=== PATIENT | female | born 1960 | race Caucasian/White ===

== ENCOUNTER → 2016-08-27 | Outpatient (CLI) | payer MEDICARE ==
[~2016-08-27] MED LIST: ASPI81TA82 PO; CARB25TA PO; CYMB30CA PO; DIAZ5TAB PO; MEDR4PAK3 PO; PRAV40TA PO
[2016-08-27 12:00] LABS: AUTOMATED NEUTROPHIL # 3.4 TH/MM3 (1.8-7.7); BASOPHIL # 0.1 TH/MM3 (0-0.2); EOSINOPHIL # 0.2 TH/MM3 (0-0.4); EOSINOPHIL % 4.2 % (0.0-4.0); HEMATOCRIT 36.9 % (35.0-46.0); HEMO FLAGS DIFF FINAL; LYMPHOCYTE # 1.5 TH/MM3 (1.0-4.8); MEAN CELL VOLUME 86.2 FL (80.0-100.0); MEAN CORPUSCULAR HEMOGLOBIN 28.5 PG (27.0-34.0); MEAN CORPUSCULAR HGB CONC 33.1 % (32.0-36.0); MONO % 8.9 % (0.0-8.0); NEUT % 59.9 % (16.0-70.0); PLATELET COUNT 327 TH/MM3 (150-450); RED BLOOD COUNT 4.28 MIL/MM3 (4.00-5.30); RED CELL DISTRIBUTION WIDTH 16.1 % (11.6-17.2); WHITE BLOOD COUNT 5.7 TH/MM3 (4.0-11.0)
[2016-08-27 12:35] LABS: ANION GAP 4 MEQ/L (5-15); AST (GOT) 33 U/L (15-37); BICARBONATE 29.7 MEQ/L (21.0-32.0); BLOOD UREA NITROGEN 16 MG/DL (7-18); CHLORIDE 104 MEQ/L (98-107); GLOMERULAR FILTRATION RATE 71 ML/MIN (>89); GLUCOSE,FASTING 71 MG/DL (74-99); POTASSIUM 3.9 MEQ/L (3.5-5.1); SODIUM (NA) 138 MEQ/L (136-145)
[2016-08-27 12:37] LABS: RHEUMATOID FACTOR TRIGGER LESS THAN 10.0 IU/ML (0.0-14.9)
[2016-08-27 13:00] LABS: ALKALINE PHOSPHATASE 100 U/L (45-117); ALT (GPT) 48 U/L (10-53); HDL CHOLESTEROL 46.5 MG/DL (40.0-60.0); LDL CHOLESTEROL 113 MG/DL (0-99); TOTAL BILIRUBIN ADULT 0.4 MG/DL (0.2-1.0)
== END ==
LOC: ELAB 08:15
PROVIDERS: ATTEND Family Medicine
DX: R26.9 Unspecified abnormalities of gait and mobility (principal); R74.8 Abnormal levels of other serum enzymes; E53.8 Deficiency of other specified B group vitamins; E78.5 Hyperlipidemia, unspecified
CPT/HCPCS: 36415; 80053; 80061; 82607; 82746; 84550; 85025; 85652; 86430

== ENCOUNTER 2017-03-15 14:32 | Emergency (ER) | payer MEDICARE ==
[~2017-03-15] VITALS: Ht 172.7 cm; Wt 110.0 kg
[~2017-03-15 14:32] MED LIST changes: +ASPI81CH CHEW; +DIAZ5 PO; +FOLI400T PO; +GABA400C5 PO; +MELO7.5T4 PO; +TRAM50TA PO
[2017-03-15 14:35] VITALS: BP 192/84; PULSE 75; RESP 18; TEMP 97.4; O2SAT 98
[2017-03-15 15:49] LABS: AUTOMATED NEUTROPHIL # 5.5 TH/MM3 (1.8-7.7); BASOPHIL % 0.6 % (0.0-2.0); EOSINOPHIL # 0.1 TH/MM3 (0-0.4); EOSINOPHIL % 1.3 % (0.0-4.0); HEMATOCRIT 40.7 % (35.0-46.0); HEMO FLAGS DIFF FINAL; LYMPH % 21.9 % (9.0-44.0); LYMPHOCYTE # 1.7 TH/MM3 (1.0-4.8); MEAN CELL VOLUME 93.8 FL (80.0-100.0); MEAN CORPUSCULAR HEMOGLOBIN 31.9 PG (27.0-34.0); MONO % 6.4 % (0.0-8.0); NEUT % 69.8 % (16.0-70.0); PLATELET COUNT 304 TH/MM3 (150-450); RED BLOOD COUNT 4.34 MIL/MM3 (4.00-5.30); RED CELL DISTRIBUTION WIDTH 14.2 % (11.6-17.2); WHITE BLOOD COUNT 7.8 TH/MM3 (4.0-11.0)
--- NOTE | 2017-03-15 15:55 | RADRPT ---
EXAM DATE/TIME: 03/15/2017 15:17 [facility] COMPARISON: No previous studies available for comparison. INDICATIONS : Chest pain today MEDICAL HISTORY : None. SURGICAL HISTORY : None. ENCOUNTER: Initial ACUITY: 1 day PAIN SCORE: 8/10 LOCATION: Bilateral chest FINDINGS: PA and lateral views of the chest demonstrate the lungs to be symmetrically aerated without evidence of mass, infiltrate or effusion. Minimal linear atelectatic changes versus scarring laterally in the left lingular region. The cardiomediastinal contours are unremarkable. Osseous structures are intac t. CONCLUSION: Minimal atelectasis or scarring in the left lingular region. Otherwise negative. Kang White MD on March 15, 2017 at 15:53 Board Certified Radiologist. This report was verified electronically.
[2017-03-15 15:58] VITALS: BP 131/74; PULSE 72; RESP 20; O2SAT 94
[2017-03-15 16:06] VITALS: BP 131/74; PULSE 63; RESP 20; TEMP 97.8; O2SAT 94
--- NOTE | 2017-03-15 16:07 | PD ---
HPI Chief Complaint: Pain: Acute or Chronic Time Seen by Provider: 15:50 Travel History International Travel<30 days: No Contact w/Intl Traveler<30days: No Traveled to known affect area: No History of Present Illness HPI 57yo F with PMH of HLD here with midsternal chest pain since about 12pm. States it was sharp and pressure like at the same time, nonradiating and intermittent. Associated with some sob and was a little diaphoretic. Denies any fever, n/v, abdominal pain, focal weakness or numbness. Pt's mason liner is Dr. Navarro and last stress test was 10/2016 and it was normal. PFSH Past Medical History High Cholesterol: Yes Diminished Hearing: No Neurologic: Yes (DYSTONIA) Immunizations Current: Yes Menopausal: Yes : 3 Para: 3 Past Surgical History Section: Yes (89,92,96) Other Surgery: Yes (CYST REMOVED FROM BACK) Social History Alcohol Use: No (DENIES) Tobacco Use: No (DENIES) Substance Use: No (DENIES) Allergies-Medications (Allergen,Severity, Reaction): Coded Allergies: No Known Allergies (Unverified , 03/15/17) Reported Meds & Prescriptions Reported Meds & Active Scripts Active Reported Pravachol (Pravastatin) 40 Mg Tab 40 Mg PO DAILY Cyanocobalamin Inj (Cyanocobalamin) 1,000 Mcg/Ml Inj 1,000 Mcg IM Q30D Folic Acid 400 Mcg Tab 400 Mcg PO DAILY Tramadol (Tramadol HCl) 50 Mg Tab 50 Mg PO QID PRN Valium (Diazepam) 5 Mg Tab 5 Mg PO HS PRN Meloxicam 7.5 Mg Tab 15 Mg PO DAILY Gabapentin 400 Mg Cap 400 Cap PO TID Review of Systems Except as stated in HPI: all other systems reviewed are Neg Physical Exam Narrative GENERAL: 57yo F not in distress. SKIN: Focused skin assessment warm/dry. HEAD: Atraumatic. Normocephalic. EYES: Pupils equal and round. No scleral icterus. No injection or drainage. ENT: No nasal bleeding or discharge. Mucous membranes pink and moist. NECK: Trachea midline. No JVD. CARDIOVASCULAR: Regular rate and rhythm. No murmur appreciated. RESPIRATORY: No accessory muscle use. Clear to auscultation. Breath sounds equal bilaterally. GASTROINTESTINAL: Abdomen soft, non-tender, nondistended. MUSCULOSKELETAL: No obvious deformities. No clubbing. No cyanosis. No edema. NEUROLOGICAL: Awake and alert. No obvious cranial nerve deficits. Motor grossly within normal limits. Normal speech. PSYCHIATRIC: Appropriate mood and affect; insight and judgment normal. Data Data Last Documented VS Vital Signs Date Time Temp Pulse Resp B/P (MAP) Pulse Ox O2 Delivery O2 Flow Rate FiO2 03/15/17 16:52 95 Room Air 03/15/17 16:06 97.8 63 20 131/74 (93) Orders Orders Electrocardiogram (03/15/17 15:07) Complete Blood Count With Diff (03/15/17 15:07) Basic Metabolic Panel (Bmp) (03/15/17 15:07) Ckmb (Isoenzyme) Profile (03/15/17 15:07) Troponin I (03/15/17 15:07) Iv Access Insert/Monitor (03/15/17 15:07) Ecg Monitoring (03/15/17 15:07) Oxygen Administration (03/15/17 15:07) Oximetry (03/15/17 15:07) Chest, Pa & Lat (03/15/17 15:07) CKMB (03/15/17 13:32) CKMB% (03/15/17 13:32) Labs Laboratory Tests Test 03/15/17 13:32 White Blood Count 7.8 TH/MM3 Red Blood Count 4.34 MIL/MM3 Hemoglobin 13.9 GM/DL Hematocrit 40.7 % Mean Corpuscular Volume 93.8 FL Mean Corpuscular Hemoglobin 31.9 PG Mean Corpuscular Hemoglobin Concent 34.0 % Red Cell Distribution Width 14.2 % Platelet Count 304 TH/MM3 Mean Platelet Volume 7.7 FL Neutrophils (%) (Auto) 69.8 % Lymphocytes (%) (Auto) 21.9 % Monocytes (%) (Auto) 6.4 % Eosinophils (%) (Auto) 1.3 % Basophils (%) (Auto) 0.6 % Neutrophils # (Auto) 5.5 TH/MM3 Lymphocytes # (Auto) 1.7 TH/MM3 Monocytes # (Auto) 0.5 TH/MM3 Eosinophils # (Auto) 0.1 TH/MM3 Basophils # (Auto) 0.0 TH/MM3 CBC Comment DIFF FINAL Differential Comment Blood Urea Nitrogen 16 MG/DL Creatinine 0.96 MG/DL Random Glucose 89 MG/DL Calcium Level 9.6 MG/DL Sodium Level 140 MEQ/L Potassium Level 4.0 MEQ/L Chloride Level 105 MEQ/L Carbon Dioxide Level 27.2 MEQ/L Anion Gap 8 MEQ/L Estimat Glomerular Filtration Rate 60 ML/MIN Total Creatine Kinase 182 U/L Creatine Kinase MB 1.4 NG/ML Troponin I LESS THAN 0.02 NG/ML MDM Medical Decision Making Medical Screen Exam Complete: Yes Emergency Medical Condition: Yes Interpretation(s) EKG: NSR 64bpm. LAD. TWI V3. Differential Diagnosis ACS vs. GERD vs. pneumonia vs. musculoskeletal pain Narrative Course 57yo F with PMH of HLD with midsternal chest pain today. Pt was initially seen at urgent care and given aspirin and sent here for further evaluation. Labs reviewed, no leukocytosis. Troponin negative. CXR showed minimal atelectasis or scarring in left lingular region. Otherwise negative. I discussed with mason liner Dr. Hernandez who is covering Dr. Navarro and he recommends observation in chest pain center for serial EKG and cardiac enzymes even though she had recent stress test. Pt reevaluated at bedside and currently does not have chest pain. She agrees with plan. Dr. Hernandez called back after discussing with pt's who he knows and states that pt can go home after a second negative troponin and follow up with Dr. Navarro as an outpatient. Repeat EKG showed reversal of TWI V3. No significant change. 2nd troponin negative. Return precautions given. Diagnosis Primary Impression: Chest pain Qualified Codes: R07.9 - Chest pain, unspecified Patient Instructions: General Instructions Departure Forms: Tests/Procedures Additional Instructions: Please follow up with Dr. Navarro in 1-2 days. Return to the ED if symptoms worsen. Med/Other Pt SpecificInfo: No Change to Meds Disposition: 01 DISCHARGE HOME Condition: Stable Sanjuana Fish DO Mar 15, 2017 16:07
[2017-03-15 16:18] LABS: ANION GAP 8 MEQ/L (5-15); BICARBONATE 27.2 MEQ/L (21.0-32.0); BLOOD UREA NITROGEN 16 MG/DL (7-18); CHLORIDE 105 MEQ/L (98-107); GLOMERULAR FILTRATION RATE 60 ML/MIN (>89); SODIUM (NA) 140 MEQ/L (136-145)
[2017-03-15 16:22] LABS: CREATINE KINASE 182 U/L (26-192)
[2017-03-15 16:33] LABS: CKMB 1.4 NG/ML (0.5-3.6)
[2017-03-15] MEDS ORDERED: PRAV40TA PO (17:03)
[2017-03-15] MEDS ORDERED: CYAN1000P IM (17:03)
[2017-03-15 19:31] VITALS: BP 135/87; PULSE 73; RESP 18; O2SAT 99
--- NOTE | 2017-03-16 19:48 | EKG ---
Date Performed: 03/15/2017 Time Performed: 19:24:49 PTAGE: 57 years EKG: Sinus rhythm LOW QRS VOLTAGE IN PRECORDIAL LEADS LEFT ANTERIOR FASCICULAR BLOCK DELAYED R WAVE PROGRESSION ABNORM AL ECG PREVIOUS TRACING : 03/15/2017 19.11 Compared to prior tracing no significant change DOCTOR: Wyatt Anna Interpretating Date/Time 03/17/2017 06:55:28
--- NOTE | 2017-03-16 19:58 | EKG ---
Date Performed: 03/15/2017 Time Performed: 15:27:05 PTAGE: 57 years EKG: Sinus rhythm LEFT ANTERIOR FASCICULAR BLOCK ABNORMAL ECG PREVIOUS TRACING : 08/14/2013 16.22 Compared to prior tracing no significant change DOCTOR: Wyatt Anna Interpretating Date/Time 03/16/2017 19:56:14
== END 2017-03-15 20:27 | disposition home or self-care (01) ==
LOC: NEPC 14:32 → NEDA 18:11 → UNDOADMOB 18:11 → NEPC 20:27 → UNDODISOB 20:27
DX: R07.9 Chest pain, unspecified (principal); R94.31 Abnormal electrocardiogram [ECG] [EKG]
CPT/HCPCS: 71020; 80048; 82550; 82552; 84484; 85025; 93005

== ENCOUNTER 2017-03-24 12:59 | Observation (INO) | payer MEDICARE ==
[~2017-03-24] VITALS: Ht 172.7 cm; Wt 110.0 kg
[~2017-03-24 12:59] MED LIST changes: -ASPI81CH CHEW; -ASPI81TA82 PO; -CARB25TA PO; +CYAN1000P IM; -CYMB30CA PO; -DIAZ5TAB PO; -MEDR4PAK3 PO
[2017-03-24 13:02] VITALS: BP 179/95; PULSE 86; RESP 24; TEMP 97.7; O2SAT 97
--- NOTE | 2017-03-24 13:05 | PD ---
Physical Exam Time Seen by Provider: 13:03 Narrative 57yo F c/o chest pain intermittently for the past few days with worsening over the past hour. +dizziness, SOB. Denies cardiac history. Patient seen in triage. VS reviewed. Patient taken to med bed from triage. Data Data Last Documented VS Vital Signs Date Time Temp Pulse Resp B/P (MAP) Pulse Ox O2 Delivery O2 Flow Rate FiO2 03/24/17 13:02 97.7 86 24 179/95 (123) 97 Room Air [facility] Supervised Visit with WATSON: Lalitha Keen Mar 24, 2017 13:05
[2017-03-24 13:24] VITALS: BP 132/67; PULSE 75; RESP 24; O2SAT 95
[2017-03-24 13:26] VITALS: BP 132/67; PULSE 74; RESP 23; O2SAT 95
[2017-03-24] MEDS ORDERED: SODIUM CHLORIDE 0.9% FLUSH 10 ML FLUSH IVF PRN (13:30)
--- NOTE | 2017-03-24 13:32 | PD ---
HPI Chief Complaint: Chest Pain Time Seen by Provider: 13:21 Travel History International Travel<30 days: No Contact w/Intl Traveler<30days: No Traveled to known affect area: No History of Present Illness HPI Patient comes back to the emergency department complaining of worsening chest pain for the past hour. Patient states for the past week she did have intermittent heaviness in her chest. Patient seen in the ER on the for this and discharged home. Patient reports she has had a stress test early this year that was negative, but has never had a cardiac cath. Patient denies any known cardiac history but does follow with Dr. Navarro. Patient describes the pressure feeling little toddler is sitting on her chest and radiates to the left. Patient reports associated shortness of breath with this. Denies any headache, diaphoresis, numbness or tingling anywhere. Patient states she's been taking baby aspirin daily for this and has already took 3 today. PFSH Past Medical History High Cholesterol: Yes Diminished Hearing: No Neurologic: Yes (DYSTONIA, FIBROMYALGIA) Immunizations Current: Yes Menopausal: Yes : 3 Para: 3 Past Surgical History Section: Yes (89,92,96) Other Surgery: Yes (CYST REMOVED FROM BACK) Social History Alcohol Use: No Tobacco Use: No Substance Use: No (DENIES) Allergies-Medications (Allergen,Severity, Reaction): Coded Allergies: No Known Allergies (Unverified , 03/24/17) Reported Meds & Prescriptions Reported Meds & Active Scripts Active Reported Pravachol (Pravastatin) 40 Mg Tab 40 Mg PO DAILY Cyanocobalamin Inj (Cyanocobalamin) 1,000 Mcg/Ml Inj 1,000 Mcg IM Q30D Folic Acid 400 Mcg Tab 400 Mcg PO DAILY Tramadol (Tramadol HCl) 50 Mg Tab 50 Mg PO QID PRN Valium (Diazepam) 5 Mg Tab 5 Mg PO HS PRN Meloxicam 7.5 Mg Tab 15 Mg PO DAILY Gabapentin 400 Mg Cap 400 Cap PO TID Review of Systems Except as stated in HPI: all other systems reviewed are Neg Physical Exam Narrative GENERAL: Well-developed, overly nourished, in no acute distress, and non-ill appearing. SKIN: Focused skin assessment warm and dry. HEAD: Atraumatic. Normocephalic. EYES: Pupils equal and round. EOMI. No scleral icterus. No injection or drainage. ENT: No nasal bleeding or discharge. Mucous membranes pink and moist. NECK: Trachea midline. Supple. No nuclear rigidity. CARDIOVASCULAR: Regular rate and rhythm. No murmur appreciated. RESPIRATORY: No accessory muscle use. No respiratory distress. Crackles noted right lung base. MUSCULOSKELETAL: No obvious deformities. No clubbing. No cyanosis. No edema. Full range of motion. NEUROLOGICAL: Awake and alert. No obvious cranial nerve deficits. Motor grossly within normal limits. Normal speech. PSYCHIATRIC: Appropriate mood and affect; insight and judgment normal. Data Data Last Documented VS Vital Signs Date Time Temp Pulse Resp B/P (MAP) Pulse Ox O2 Delivery O2 Flow Rate FiO2 03/24/17 13:26 74 23 132/67 (88) 95 Room Air 03/24/17 13:02 97.7 Orders Orders Electrocardiogram (03/24/17 13:22) Basic Metabolic Panel (Bmp) (03/24/17 13:22) B-Type Natriuretic Peptide (03/24/17 13:22) Ckmb (Isoenzyme) Profile (03/24/17 13:22) Complete Blood Count With Diff (03/24/17 13:22) Magnesium (Mg) (03/24/17 13:22) Prothrombin Time / Inr (Pt) (03/24/17 13:22) Act Partial Throm Time (Ptt) (03/24/17 13:22) Troponin I (03/24/17 13:22) Chest, Single Ap (03/24/17 13:22) Ecg Monitoring (03/24/17 13:22) Bilateral Bp Monitoring (03/24/17 13:22) Iv Access Insert/Monitor (03/24/17 13:22) Oximetry (03/24/17 13:22) Oxygen Administration (03/24/17 13:22) Sodium Chloride 0.9% Flush (Ns Flush) (03/24/17 13:30) Nitroglycerin Sl (Nitrostat Sl) (03/24/17 13:30) CKMB (03/24/17 13:34) CKMB% (03/24/17 13:34) Consult Cardiology (03/24/17 ) (Hub Use Only)Inp Phy Cons/Ref (03/24/17 ) Admit Order (Ed Use Only) (03/24/17 15:51) Labs Laboratory Tests Test 03/24/17 13:34 White Blood Count 7.4 TH/MM3 Red Blood Count 4.88 MIL/MM3 Hemoglobin 15.5 GM/DL Hematocrit 45.8 % Mean Corpuscular Volume 93.8 FL Mean Corpuscular Hemoglobin 31.8 PG Mean Corpuscular Hemoglobin Concent 33.9 % Red Cell Distribution Width 14.1 % Platelet Count 327 TH/MM3 Mean Platelet Volume 7.1 FL Neutrophils (%) (Auto) 72.3 % Lymphocytes (%) (Auto) 19.1 % Monocytes (%) (Auto) 5.2 % Eosinophils (%) (Auto) 2.9 % Basophils (%) (Auto) 0.5 % Neutrophils # (Auto) 5.4 TH/MM3 Lymphocytes # (Auto) 1.4 TH/MM3 Monocytes # (Auto) 0.4 TH/MM3 Eosinophils # (Auto) 0.2 TH/MM3 Basophils # (Auto) 0.0 TH/MM3 CBC Comment DIFF FINAL Differential Comment Prothrombin Time 10.5 SEC Prothromb Time International Ratio 1.0 RATIO Activated Partial Thromboplast Time 31.7 SEC Blood Urea Nitrogen 18 MG/DL Creatinine 1.04 MG/DL Random Glucose 103 MG/DL Calcium Level 9.9 MG/DL Magnesium Level 2.0 MG/DL Sodium Level 138 MEQ/L Potassium Level 3.8 MEQ/L Chloride Level 102 MEQ/L Carbon Dioxide Level 27.7 MEQ/L Anion Gap 8 MEQ/L Estimat Glomerular Filtration Rate 55 ML/MIN Total Creatine Kinase 136 U/L Creatine Kinase MB 1.4 NG/ML Troponin I LESS THAN 0.02 NG/ML B-Type Natriuretic Peptide 13 PG/ML MDM Medical Decision Making Medical Screen Exam Complete: Yes Emergency Medical Condition: Yes Interpretation(s) EKG reviewed by Dr. Pardo shows sinus rhythm ventricular rate is 73. No STEMI. Differential Diagnosis Acute coronary syndrome, angina, pneumonia, pneumothorax, CHF, pneumothorax, electrolyte abnormality, other Narrative Course Patient was seen and examined. Initial laboratory and radiological studies were ordered. Patient was given nitroglycerin sublingually that improved her chest pain. Discussed all findings and plan care of patient was agreeable for admission. All questions were answered. Discussed patient with Dr. Pardo, who is in agreement with plan of care and disposition. Discussed patient with cardiology who is agreeable to consult. Discussed patient with hospitalist who is agreeable to admit the patient. Patient remained stable throughout ED course. Physician Communication Physician Communication [phone] Anna, fountain helper covering for Dr. Lloyd , wants patient admitted to medicine and he will consult. Diagnosis Primary Impression: Atypical chest pain Admitting Information Admitting Physician Requests: Observation Condition: Stable Reji Mackenzie Mar 24, 2017 13:32
[2017-03-24] MEDS: NITROGLYCERIN 0.4 MG SL 25 TABS/BTL SL SCH ×4 (13:35→15:04)
[2017-03-24 13:45] LABS: AUTOMATED NEUTROPHIL # 5.4 TH/MM3 (1.8-7.7); BASOPHIL % 0.5 % (0.0-2.0); EOSINOPHIL # 0.2 TH/MM3 (0-0.4); EOSINOPHIL % 2.9 % (0.0-4.0); HEMATOCRIT 45.8 % (35.0-46.0); HEMO FLAGS DIFF FINAL; LYMPH % 19.1 % (9.0-44.0); LYMPHOCYTE # 1.4 TH/MM3 (1.0-4.8); MEAN CELL VOLUME 93.8 FL (80.0-100.0); MEAN CORPUSCULAR HEMOGLOBIN 31.8 PG (27.0-34.0); MEAN CORPUSCULAR HGB CONC 33.9 % (32.0-36.0); MONO % 5.2 % (0.0-8.0); NEUT % 72.3 % (16.0-70.0); PLATELET COUNT 327 TH/MM3 (150-450); RED BLOOD COUNT 4.88 MIL/MM3 (4.00-5.30); RED CELL DISTRIBUTION WIDTH 14.1 % (11.6-17.2); WHITE BLOOD COUNT 7.4 TH/MM3 (4.0-11.0)
[2017-03-24 13:57] LABS: APTT (PATIENT) 31.7 SEC (24.3-30.1); PROTHROMBIN TIME - PATIENT 10.5 SEC (9.8-11.6)
[2017-03-24 14:06] LABS: ANION GAP 8 MEQ/L (5-15); BICARBONATE 27.7 MEQ/L (21.0-32.0); BLOOD UREA NITROGEN 18 MG/DL (7-18); CHLORIDE 102 MEQ/L (98-107); GLOMERULAR FILTRATION RATE 55 ML/MIN (>89); POTASSIUM 3.8 MEQ/L (3.5-5.1); SODIUM (NA) 138 MEQ/L (136-145)
--- NOTE | 2017-03-24 14:09 | RADRPT ---
EXAM DATE/TIME: 03/24/2017 13:51 [facility] COMPARISON: CHEST SINGLE AP, August 14, 2013, 16:42. INDICATIONS : Chest pain, shortness of breath. MEDICAL HISTORY : None. SURGICAL HISTORY : None. ENCOUNTER: Initial ACUITY: 1 day PAIN SCORE: 8/10 LOCATION: Left chest FINDINGS: A single view of the chest demonstrates the lungs to be symmetrically aerated without evidence of mas s, infiltrate or effusion. The cardiomediastinal contours are unremarkable. Osseous structures are intact. CONCLUSION: No acute disease. Timo Hernandez MD on March 24, 2017 at 14:07 Board Certified Radiologist. This report was verified electronically.
[2017-03-24 14:10] LABS: CREATINE KINASE 136 U/L (26-192)
[2017-03-24 14:23] LABS: CKMB 1.4 NG/ML (0.5-3.6)
[2017-03-24] MEDS ORDERED: NALOXONE HCL 0.4 MG/ML AMP IV PRN (16:15)
[2017-03-24] MEDS ORDERED: ONDANSETRON HCL 4 MG/2 ML VIAL IVP PRN (16:15)
[2017-03-24] MEDS ORDERED: ACETAMINOPHEN 325 MG TAB PO PRN (16:15)
[2017-03-24] MEDS ORDERED: MAGNESIUM HYDROXIDE SUSP 30 ML CUP PO PRN (16:15)
[2017-03-24] MEDS ORDERED: BISACODYL 10 MG SUPP RECTAL PRN (16:15)
[2017-03-24] MEDS ORDERED: SODIUM CHLORIDE 0.9% FLUSH 10 ML FLUSH IV FLUSH PRN (16:15)
[2017-03-24] MEDS ORDERED: LACTULOSE SYRUP 20 GM/30 ML CUP PO PRN (16:15)
[2017-03-24] MEDS ORDERED: SENNOSIDES 8.6 MG TAB PO PRN (16:15)
--- NOTE | 2017-03-24 16:17 | HHI.HP ---
[facility] Service [facility] Primary Care Physician Jane Chatman M.D. Admission Diagnosis atypical chest pain Diagnoses: Chief Complaint: Chest pain Travel History International Travel<30 Days: No Contact w/Intl Traveler <30 Da: No Traveled to Known Affected Are: No History of Present Illness This is a 57-year-old female with history of atypical chest pain evaluated by Dr. Navarro and history of dystonia who presented with chest pain. Patient stated that at 1 PM today she had chest pain while at rest. Chest pain last about 5-10 minutes and resolves on its own. Sometimes she has shortness of breathing with ease chest pain. Denies any nausea vomiting or diaphoresis with this chest pain. Patient stated that this has been happening for a while and she has been seeing Dr. Navarro for this. She had 2 nuclear stress test that was negative in the past last one October 2016. Patient stated that Dr. Navarro recommended cardiac catheterization but she wanted to wait to see if it got better. Moment she is chest pain-free. No history of tobacco use. She stated that her father had a pacemaker but no history of any coronary artery disease or UT. Dr. Anna was consulted by KARLEY and he stated that he will come see patient today. All other review of symptoms reviewed and all negative. Her son and daughter are at the bedside during the interview. Past Family Social History Past Medical History Dystonia Osteoarthritis Chronic right arm pain Hyperlipidemia Peripheral neuropathy Past Surgical History 3 C-sections. Reported Medications Pravachol (Pravastatin) 40 Mg Tab 40 Mg PO DAILY Cyanocobalamin Inj (Cyanocobalamin) 1,000 Mcg/Ml Inj 1,000 Mcg IM Q30D Folic Acid 400 Mcg Tab 400 Mcg PO DAILY Tramadol (Tramadol HCl) 50 Mg Tab 50 Mg PO QID PRN Valium (Diazepam) 5 Mg Tab 5 Mg PO HS PRN Meloxicam 7.5 Mg Tab 15 Mg PO DAILY Gabapentin 400 Mg Cap 400 Cap PO TID Allergies: Coded Allergies: No Known Allergies (Unverified , 03/24/17) Active Ordered Medications Current Medications Sodium Chloride (NS Flush) 2 ml UNSCH PRN IVF FLUSH AFTER USING IV ACCESS; Start 03/24/17 at 13:30 Nitroglycerin (Nitrostat Sl) 0.4 mg Q5M SL Last administered on 03/24/17t 14:19 ; Start 03/24/17 at 13:30; Stop 03/24/17 at 13:41; Status DC Sodium Chloride 1,000 ml @ 75 mls/hr [id number] IV ; Start 03/24/17 at 16:11 Sodium Chloride (NS Flush) 2 ml UNSCH PRN IV FLUSH FLUSH AFTER USING IV ACCESS ; Start 03/24/17 at 16:15 Sodium Chloride (NS Flush) 2 ml BID IV FLUSH ; Start 03/24/17 at 21:00 Acetaminophen (Tylenol) 650 mg Q4H PRN PO TEMP > 100.4; Start 03/24/17 at 16:15 Ondansetron HCl (Zofran Inj) 4 mg Q6H PRN IVP NAUSEA OR VOMITING; Start at 16:15 Naloxone HCl (Narcan Inj) 0.4 mg UNSCH PRN IV SEE LABEL COMMENTS; Start at 16:15 Senna/Docusate Sodium (Lizzy-Colace) 1 tab BID PO ; Start 03/24/17 at 21:00 Magnesium Hydroxide (Milk Of Magnesia Liq) 30 ml Q12H PRN PO MILD - MODERATE CONSTIPATION; Start 03/24/17 at 16:15 Sennosides (Senokot) 17.2 mg Q12H PRN PO MODERATE - SEVERE CONSTIPATION; Start 03/24/17 at 16:15 Bisacodyl (Dulcolax Supp) 10 mg DAILY PRN RECTAL SEVERE CONSITIPATION; Start at 16:15 Lactulose (Lactulose Liq) 30 ml DAILY PRN PO SEVERE CONSITIPATION; Start at 16:15 Family History No family history of heart disease, cancer, or diabetes. Social History Deny any tobacco or alcohol use. Physical Exam Vital Signs Vital Signs Date Time Temp Pulse Resp B/P (MAP) Pulse Ox O2 Delivery O2 Flow Rate FiO2 03/24/17 13:26 74 23 132/67 (88) 95 Room Air 03/24/17 13:26 95 Room Air 03/24/17 13:24 71 24 97 Room Air 03/24/17 13:24 75 24 132/67 (88) 95 Room Air 03/24/17 13:02 97.7 86 24 179/95 (123) 97 Room Air Physical Exam GENERAL: This is a well-nourished, well-developed patient, in no apparent distress. SKIN: No rashes, ecchymoses or lesions. Cool and dry. HEAD: Atraumatic. Normocephalic. No temporal or scalp tenderness. EYES: Pupils equal round and reactive. Extraocular motions intact. No scleral icterus. No injection or drainage. ENT: Nose without bleeding, purulent drainage or septal hematoma. Throat without erythema, tonsillar hypertrophy or exudate. Uvula midline. Airway patent. NECK: Trachea midline. No JVD or lymphadenopathy. Supple, nontender, no meningeal signs. CARDIOVASCULAR: Regular rate and rhythm without murmurs, gallops, or rubs. RESPIRATORY: Clear to auscultation. Breath sounds equal bilaterally. No wheezes , rales, or rhonchi. GASTROINTESTINAL: Abdomen soft, non-tender, nondistended. No hepato-splenomegaly , or palpable masses. No guarding. MUSCULOSKELETAL: Extremities without clubbing, cyanosis, or edema. No joint tenderness, effusion, or edema noted. No calf tenderness. Negative Homans sign bilaterally. NEUROLOGICAL: Awake and alert. Cranial nerves II through XII intact. Motor and sensory grossly within normal limits. Five out of 5 muscle strength in all muscle groups. Normal speech. Laboratory Laboratory Tests Test 03/24/17 13:34 White Blood Count 7.4 Red Blood Count 4.88 Hemoglobin 15.5 Hematocrit 45.8 Mean Corpuscular Volume 93.8 Mean Corpuscular Hemoglobin 31.8 Mean Corpuscular Hemoglobin Concent 33.9 Red Cell Distribution Width 14.1 Platelet Count 327 Mean Platelet Volume 7.1 Neutrophils (%) (Auto) 72.3 Lymphocytes (%) (Auto) 19.1 Monocytes (%) (Auto) 5.2 Eosinophils (%) (Auto) 2.9 Basophils (%) (Auto) 0.5 Neutrophils # (Auto) 5.4 Lymphocytes # (Auto) 1.4 Monocytes # (Auto) 0.4 Eosinophils # (Auto) 0.2 Basophils # (Auto) 0.0 CBC Comment DIFF FINAL Differential Comment Prothrombin Time 10.5 Prothromb Time International Ratio 1.0 Activated Partial Thromboplast Time 31.7 Blood Urea Nitrogen 18 Creatinine 1.04 Random Glucose 103 Calcium Level 9.9 Magnesium Level 2.0 Sodium Level 138 Potassium Level 3.8 Chloride Level 102 Carbon Dioxide Level 27.7 Anion Gap 8 Estimat Glomerular Filtration Rate 55 Total Creatine Kinase 136 Creatine Kinase MB 1.4 Troponin I LESS THAN 0.02 B-Type Natriuretic Peptide 13 Result Diagram: 03/24/17 1334 03/24/17 1334 Caprini VTE Risk Assessment Caprini VTE Risk Assessment: No/Low Risk (score <= 1) Caprini Risk Assessment Model Point Value = 1 Point Value = 2 Point Value = 3 Point Value = 5 Age 41-60 Minor surgery BMI > 25 kg/m2 Swollen legs Varicose veins or History of unexplained or recurrent spontaneous Oral contraceptives or hormone replacement Sepsis (< 1 month) Serious lung disease, including pneumonia (< 1 month) Abnormal pulmonary function Acute myocardial infarction Congestive heart failure (< 1 month) History of inflammatory bowel disease Medical patient at bed rest Age 61-74 Arthroscopic surgery Major open surgery (> 45 min) Laparoscopic surgery (> 45 min) Malignancy Confined to bed (> 72 hours) Immobilizing plaster cast Central venous access Age >= 75 History of VTE Family history of VTE Factor V Leiden Prothrombin [id number] Lupus anticoagulant Anticardiolipin antibodies Elevated serum homocysteine Heparin-induced thrombocytopenia Other congenital or acquired thrombophilia Stroke (< 1 month) Elective arthroplasty Hip, pelvis, or leg fracture Acute spinal cord injury (< 1 month) Prophylaxis Regimen Total Risk Factor Score Risk Level Prophylaxis Regimen 0-1 Low Early ambulation 2 Moderate Order ONE of the following: *Sequential Compression Device (SCD) *Heparin 5000 units SQ BID 3-4 Higher Order ONE of the following medications: *Heparin 5000 units SQ TID *Enoxaparin/Lovenox 40 mg SQ daily (WT < 150 kg, CrCl > 30 mL/min) *Enoxaparin/Lovenox 30 mg SQ daily (WT < 150 kg, CrCl > 10-29 mL/min) *Enoxaparin/Lovenox 30 mg SQ BID (WT < 150 kg, CrCl > 30 mL/min) AND/OR *Sequential Compression Device (SCD) 5 or more Highest Order ONE of the following medications: *Heparin 5000 units SQ TID (Preferred with Epidurals) *Enoxaparin/Lovenox 40 mg SQ daily (WT < 150 kg, CrCl > 30 mL/min) *Enoxaparin/Lovenox 30 mg SQ daily (WT < 150 kg, CrCl > 10-29 mL/min) *Enoxaparin/Lovenox 30 mg SQ BID (WT < 150 kg, CrCl > 30 mL/min) AND *Sequential Compression Device (SCD) Assessment and Plan Assessment and Plan 87-year-old female who presented with chest pain Chest pain -Sounds atypical. Occurring at rest intermittently resolving on its own. Associated with some shortness of breathing. To previous nuclear stress test negative. -Operator Lights consulted. -At the moment patient is asymptomatic. Will give nitroglycerin when necessary or morphine when necessary for chest pain. -Will also give aspirin. -Continue with home statin. Hyperlipidemia/dystonia/osteoarthritis -We start home medication except for meloxicam. DVT prophylaxis -SCDs. Code Status full Discussed Condition With patient and her son and daughter Kimberly Ochoa MD Mar 24, 2017 16:17
[2017-03-24] MEDS ORDERED: traMADol HCL 50 MG TAB PO PRN (16:45)
[2017-03-24] MEDS ORDERED: DIAZEPAM 5 MG TAB PO PRN (16:45)
[2017-03-24] MEDS: SODIUM CHLOR 0.45% 1000 ML INJ 1,000 ML IV SCH (17:44)
[2017-03-24 17:54] VITALS: BP 141/91; PULSE 68; RESP 18; TEMP 98.4; O2SAT 97
[2017-03-24 20:25] VITALS: PULSE 69
[2017-03-24] MEDS: DOCUSATE SODIUM 50 MG/SENNA 8.6 MG TAB PO SCH (20:33)
[2017-03-24] MEDS: SODIUM CHLORIDE 0.9% FLUSH 10 ML FLUSH IV FLUSH SCH (20:34)
[2017-03-24 21:13] VITALS: BP 144/70; PULSE 69; RESP 18; TEMP 97.8; O2SAT 96
[2017-03-24] MEDS: GABAPENTIN 400 MG CAP PO SCH (22:00)
--- NOTE | 2017-03-24 22:46 | MB ---
cc: WYATT ANNA MD DATE OF CONSULTATION 03/24/17 HISTORY OF PRESENT ILLNESS Ms. Hodge is a 57-year-old white female with history of chest pain. She had nuclear stress test in 08/2003 which was negative and then subsequently PET scan in October 2016 which was also negative. She presented with lower substernal chest discomfort which showed started this afternoon at rest. It is increased with breathing. She also has shortness of breath. She is a patient of Dr. Navarro, who was considering cardiac catheterization earlier this year. PAST MEDICAL HISTORY Positive for right arm pain, dyslipidemia, peripheral neuropathy, dysphonia, osteoarthritis, 6 C sections. MEDICATIONS 1. Pravachol. 2. Cyanocobalamin. 3. Folic acid. 4. Tramadol. 5. Valium. 6. Miloxicam. 7. Gabapentin. ALLERGIES None. SOCIAL HISTORY The patient does not smoke. She does not drink alcohol. FAMILY HISTORY Negative for heart disease. REVIEW OF SYSTEMS The review of systems is otherwise negative. PHYSICAL EXAMINATION VITAL SIGNS: Blood pressure 132/67, pulse 74 and regular. HEENT: Negative. 2+ carotid upstrokes. No bruits. LUNGS: Clear. HEART: Regular with no murmur, gallop. ABDOMEN: Soft. No bruits. EXTREMITIES: Without edema. 2+ distal pulses. NEUROLOGIC: Exam shows sinus bilateral dystonic and clonic motion of her __ extremities. CARDIOLOGY STUDIES EKG was reviewed and showed normal sinus rhythm, left axis, left anterior fascicular block and abnormal R-wave progression of precordial leads. LABORATORY DATA Hemoglobin 15.5, potassium 3.8, creatinine 1.0. CK 136. Troponin less than 0.02. BNP 13. DIAGNOSIS 1. Atypical chest pain. 2. Hypertension. 3. Dyslipidemia. 4. Dystonia. DISPOSITION Ms. Hodge will be monitored on telemetry with serial enzymes and EKGs. We will continue her current medical program including aggressive modification of her cardiac risk factors. We will continue aspirin. Dr. Navarro, her primary primary special education teacher, will see her tomorrow. Wyatt Anna MD OQ/EO /5:35 PM /10:25 PM [facility]
[2017-03-24] MEDS ORDERED: CYANOCOBALAMIN 1000 MCG/ML VIAL IM SCH (23:00)
[2017-03-25 00:05] VITALS: PULSE 57
[2017-03-25 00:22] VITALS: BP 129/70; PULSE 62; RESP 18; TEMP 97.4; O2SAT 95
[2017-03-25 04:10] VITALS: PULSE 59
[2017-03-25 04:53] VITALS: BP 119/67; PULSE 56; RESP 18; TEMP 97.4; O2SAT 96
[2017-03-25] MEDS: SODIUM CHLOR 0.45% 1000 ML INJ 1,000 ML IV SCH (08:35)
[2017-03-25] MEDS: SODIUM CHLORIDE 0.9% FLUSH 10 ML FLUSH IV FLUSH SCH (08:39)
[2017-03-25] MEDS: GABAPENTIN 400 MG CAP PO SCH (08:39)
[2017-03-25] MEDS: DOCUSATE SODIUM 50 MG/SENNA 8.6 MG TAB PO SCH (08:39)
[2017-03-25 08:42] VITALS: BP 141/85; PULSE 63; RESP 16; TEMP 97.6; O2SAT 95
[2017-03-25] MEDS ORDERED: ASPIRIN EC 81 MG TABEC PO SCH (09:00)
[2017-03-25] MEDS ORDERED: PRAVASTATIN SOD 40 MG TAB PO SCH (09:00)
[2017-03-25] MEDS ORDERED: FOLIC ACID 1 MG TAB PO SCH (09:00)
[2017-03-25] MEDS ORDERED: NS 1000P @30 MLS/HR (KVO) IV SCH (10:00)
[2017-03-25] MEDS ORDERED: LORazepam 1 MG TAB SL PRN (11:15)
[2017-03-25] MEDS ORDERED: METOPROLOL TARTRATE 5 MG/5 ML VIAL IV PRN (12:00)
[2017-03-25] MEDS ORDERED: METOPROLOL TARTRATE 50 MG TAB PO SCH (12:00)
[2017-03-25] MEDS ORDERED: NITROGLYCERIN 0.4 MG SL 25 TABS/BTL SL SCH (12:00)
[2017-03-25 12:17] LABS: HEMOGLOBIN A1a 1.1 %; HEMOGLOBIN A1b 1.7 %; HEMOGLOBIN Ao 85.9 %; HEMOGLOBIN LA1C 1.5 %; HEMOGLOBIN P3 3.7 %
[2017-03-25] MEDS ORDERED: NITROGLYCERIN 0.4 MG SL 25 TABS/BTL SL ONE ×2 (13:38→13:43)
[2017-03-25] MEDS ORDERED: IOHEXOL 350 MG/ML 10 ML VIAL (for RAD DIAG) IVCONTRAST ONE (14:22)
--- NOTE | 2017-03-25 14:26 | PD.CARD.PN ---
Subjective Subjective Remarks Chest pain worse with direct palpation (Beatriz Kasper) Objective Medications Current Medications Medications (Trade) Dose Ordered Sig/Aditi Route Start Time Stop Time Status Last Admin Sodium Chloride 1,000 ml @ 75 mls/hr [id number] IV 03/24/17 16:11 03/25/17 08:35 (NS Flush) 2 ml UNSCH PRN IV FLUSH 03/24/17 16:15 (NS Flush) 2 ml BID IV FLUSH 03/24/17 21:00 03/25/17 08:39 (Tylenol) 650 mg Q4H PRN PO 03/24/17 16:15 (Zofran Inj) 4 mg Q6H PRN IVP 03/24/17 16:15 (Narcan Inj) 0.4 mg UNSCH PRN IV 03/24/17 16:15 (Lizzy-Colace) 1 tab BID PO 03/24/17 21:00 03/25/17 08:39 (Milk Of Magnesia Liq) 30 ml Q12H PRN PO 03/24/17 16:15 (Senokot) 17.2 mg Q12H PRN PO 03/24/17 16:15 (Dulcolax Supp) 10 mg DAILY PRN RECTAL 03/24/17 16:15 (Lactulose Liq) 30 ml DAILY PRN PO 03/24/17 16:15 (Ecotrin Ec) 81 mg DAILY PO 03/25/17 09:00 03/25/17 08:39 (Vitamin B12 Inj) 1,000 mcg Q30D IM 03/24/17 23:00 (Valium) 5 mg HS PRN PO 03/24/17 16:45 (Folate) 0.4 mg DAILY PO 03/25/17 09:00 03/25/17 08:39 (Neurontin) 400 mg TID PO 03/24/17 18:00 03/25/17 08:39 (Pravachol) 40 mg DAILY PO 03/25/17 09:00 03/25/17 08:40 (Ultram) 50 mg QID PRN PO 03/24/17 16:45 Sodium Chloride 1,000 ml @ 30 mls/hr Q24H IV 03/25/17 10:00 (Ativan) 1 mg Q6H PRN SL 03/25/17 11:15 03/25/17 12:15 (Lopressor) 50 mg BI DATA ARCHITECT PO 03/25/17 12:00 03/29/17 11:59 (Lopressor Inj) 5 mg BI DATA ARCHITECT PRN IV 03/25/17 12:00 03/29/17 11:59 (Nitrostat Sl) 0.4 mg ONCE SL 03/25/17 12:00 03/29/17 11:59 Vital Signs / I&O Vital Signs Date Time Temp Pulse Resp B/P (MAP) Pulse Ox O2 Delivery O2 Flow Rate FiO2 03/25/17 08:42 97.6 63 16 141/85 (103) 95 03/25/17 04:53 97.4 56 18 119/67 (84) 96 03/25/17 04:10 59 03/25/17 00:22 97.4 62 18 129/70 (89) 95 03/25/17 00:05 57 03/24/17 21:13 97.8 69 18 144/70 (94) 96 03/24/17 20:25 69 03/24/17 17:54 98.4 68 18 141/91 (108) 97 03/24/17 14:24 18 Physical Exam GENERAL: Obese female SKIN: Warm and dry. HEAD: Normocephalic. EYES: No scleral icterus. No injection or drainage. NECK: Supple, trachea midline. No JVD or lymphadenopathy. CARDIOVASCULAR: Regular rate and rhythm without murmurs, gallops, or rubs. Winces to direct palpation of epigastric, xiphoid, and sternocostal joints RESPIRATORY: Breath sounds equal bilaterally. No accessory muscle use. GASTROINTESTINAL: Abdomen soft, non-tender, nondistended. MUSCULOSKELETAL: No cyanosis, or edema. Dystonic movements BACK: Nontender without obvious deformity. No CVA tenderness. Laboratory Laboratory Tests Test 03/24/17 21:30 03/25/17 03:30 Troponin I LESS THAN 0.02 NG/ML LESS THAN 0.02 NG/ML Triglycerides Level 122 MG/DL Cholesterol Level 168 MG/DL LDL Cholesterol 96 MG/DL HDL Cholesterol 48.0 MG/DL Cholesterol/HDL Ratio 3.50 RATIO Imaging Last 72 hours Impressions Chest X-Ray 03/24/17 1322 Signed Impressions: Service Date/Time: February 13:51 - CONCLUSION: No acute disease. Timo Hernandez MD (Beatriz Kasper) Assessment and Plan Assessment and Plan 1. Atypical chest pain. 2. Hypertension. 3. Dyslipidemia. 4. Dystonia. PLAN: Pain seems to be related with chest wall pain. We will check a coronary CTA. Can also consider CT pulmonary angiogram to exclude PE. If CTA coronary if negative, we will discharge the patient home. Patient seen and evaluated by Dr Navarro who completed face to face encounter, completed physical exam and participated in evaluation and management of the patient Late entry. patient seen at 0930 (Beatriz Kasper) Assessment and Plan Has costochondritis and chest wall pain that is reproducible , also has atypical chest pain so will proceed with CTA coronaries. (Toby Navarro MD) Beatriz Kasper Mar 25, 2017 14:26 Toby Navarro MD Mar 25, 2017 14:39
--- NOTE | 2017-03-25 15:39 | HHI.PR ---
Subjective Remarks Patient reports she is feeling great. She is ambulating in the halls. Objective Vitals Vital Signs Date Time Temp Pulse Resp B/P (MAP) Pulse Ox O2 Delivery O2 Flow Rate FiO2 03/25/17 08:42 97.6 63 16 141/85 (103) 95 03/25/17 04:53 97.4 56 18 119/67 (84) 96 03/25/17 04:10 59 03/25/17 00:22 97.4 62 18 129/70 (89) 95 03/25/17 00:05 57 03/24/17 21:13 97.8 69 18 144/70 (94) 96 03/24/17 20:25 69 03/24/17 17:54 98.4 68 18 141/91 (108) 97 Result Diagram: 03/24/17 1334 03/24/17 1334 Imaging Last Impressions Coronary Angiography CT 03/25/17 0000 Signed Impressions: Service Date/Time: Saturday, March 25, 2017 13:59 - CONCLUSION: Negative for significant coronary stenosis. There are no coronary calcifications identified. Oskar Jamil MD FACR Chest X-Ray 03/24/17 1322 Signed Impressions: Service Date/Time: February 13:51 - CONCLUSION: No acute disease. Timo Hernandez MD Objective Remarks GENERAL: This is a well-nourished, well-developed patient, in no apparent distress. CARDIOVASCULAR: Regular rate and rhythm without murmurs, gallops, or rubs. RESPIRATORY: Clear to auscultation. Breath sounds equal bilaterally. No wheezes , rales, or rhonchi. GASTROINTESTINAL: Abdomen soft, non-tender, nondistended. Normal active bowel sounds MUSCULOSKELETAL: Extremities without clubbing, cyanosis, or edema. NEURO: Alert & Oriented x4 to person, place, time, situation. Moves all ext x4 A/P Problem List: (1) Atypical chest pain ICD Code: R07.89 - Other chest pain Status: Acute Assessment and Plan 57 Y/O female admitted with atypical chest pain. The patient was evaluated by cardiology. She ruled out for ischemia with negative cardiac enzymes and ekg. She had a normal CTA of the coronary. Pain is likely costochondritis. Patient is stable for discharge home. Follow up outpatient with PCP and Cardiology. She was advised to use OTC anti-inflammatory as needed for pain. Skylar Harris MD Mar 25, 2017 15:39
--- NOTE | 2017-03-25 15:39 | RADRPT ---
EXAM DATE/TIME: 03/25/2017 13:59 [facility] COMPARISON: No previous studies available for comparison. INDICATIONS : Chest pain. IV CONTRAST: 75 cc Omnipaque 350 (iohexol) IV RADIATION DOSE: 11.19 CTDIvol (mGy) MEDICAL HISTORY : None SURGICAL HISTORY : None. ENCOUNTER: Initial ACUITY: 1 day PAIN SCALE: 0/10 LOCATION: Bilateral chest TECHNIQUE: Volumetric scanning was obtained through the heart. Images were acquired on a multislice multiple ro w detector helical scanner timed for acquisition during peak arterial contrast. Images were reconstr ucted using a retrospective gating algorithm including single sector and multi-sector algorithms at m ultiple phases of the cardiac cycle. Images were interpreted using a combination of 2D and 3D visual ization modes including curved planar reformation, thin slab maximum intensity projection and volume rendering. Using automated exposure control and adjustment of the mA and/or kV according to patient size, radiation dose was kept as low as reasonably achievable to obtain optimal diagnostic quality im ages. DICOM format image data is available electronically for review and comparison. FINDINGS: VESSEL ANALYSIS: DOMINANCE: The coronary system is right coronary dominance there very small right coronary. LEFT MAIN: Normal vessel without calcification or stenosis. LAD: Normal vessel without calcification or stenosis. CIRCUMFLEX: Normal vessel without calcification or stenosis. RCA: Normal vessel without calcification or stenosis. OTHER: There is no pleural effusion. There is no myocardial bridging. There is no calcification evident. In calcium scores CONCLUSION: Negative for significant coronary stenosis. There are no coronary calcifications identified. Oskar Jamil MD FACR on March 25, 2017 at 15:33 Board Certified Radiologist. This report was verified electronically.
[2017-03-25] MEDS ORDERED: ASPI-99 PO (15:42)
--- NOTE | 2017-03-26 01:18 | EKG ---
Date Performed: 03/24/2017 Time Performed: 13:47:15 PTAGE: 57 years EKG: Sinus rhythm LEFT ANTERIOR FASCICULAR BLOCK POSSIBLE ANTERIOR MYOCARDIAL INFARCTION ABNORMAL ECG Compared to the PREVIOUS TRACING from 03/15/17, no significant change DOCTOR: Yuri Craft Interpretating Date/Time 03/26/2017 01:17:13
== END 2017-03-25 16:01 | disposition home or self-care (01) ==
LOC: NEPE 12:59 → NEDA 15:53 → NEPGCP 17:49 → HCIS 03-25 09:37
PROVIDERS: ADMIT Family Medicine; ATTEND Family Medicine
DX: R07.89 Other chest pain (principal); R06.02 Shortness of breath; M79.7 Fibromyalgia; G24.9 Dystonia, unspecified; E78.00 Pure hypercholesterolemia, unspecified; M79.601 Pain in right arm; G62.9 Polyneuropathy, unspecified; Z79.82 Long term (current) use of aspirin
CPT/HCPCS: 71010; 75574; 80048; 80061; 82550; 82552; 83036; 83735; 83880; 84484; 85025; 85610; 85730; 93005; 96372; 99285; G0378; Q9967